=== PATIENT | female | born 1980 | race Caucasian/White ===

== ENCOUNTER 2016-11-16 11:12 | Emergency (ER) | payer BC ==
[2016-11-16 11:21] VITALS: BP 130/79
--- NOTE | 2016-11-16 11:47 | ERNOTE ---
Upper Extremity HPI - Narrative Date of Service: 11/16/16 - General Extremities Pain Location: collar-bone area: right, shoulder: right, arm: right , other: right - neck Time Seen by Provider: 11/16/16 11:14 Source: patient, RN notes reviewed Exam Limitations: no limitations - Immun/Allergies/Home Medications Immunizations: IMMUNIZATION HX Immunizations Up to Date Yes History of Influenza Vaccine No Hx Pneumococcal Vaccination No Allergies/Adverse Reactions: Allergies Allergy/AdvReac Type Severity Reaction Status Date / Time adhesive AdvReac Mild BANDAIDS Verified 11/16/16 11:21 CAUSE RASH Home Medications: HOME MEDICATIONS Ranitidine HCl [Zantac] 150 mg PO DAILY PRN 10/29/15 [Last Taken 04/05/16] Cyclobenzaprine HCl [Flexeril] 10 mg PO TID PRN 04/01/16 [Last Taken 04/01/16] oxyCODONE HCL/ACETAMINOPHEN [Oxycodone-Acetaminophen 5-325] 1 each PO Q6H PRN # 16 tablet 11/16/16 [Last Taken Unknown] - History of Present Illness Narrative: Kade is a 36-year-old female patient ambulatory to the emergency department for right-sided neck pain radiating into the shoulder and arm that was present on awakening this morning. She has limited mobility of her neck and shoulder. She has taken ibuprofen and Flexeril this morning without much improvement. She denies any injury. She reports having this happen to her once before. She has a history of degenerative disc disease and herniated disc in her lower back. Occurred: this morning Method of Injury: Reports: no apparent injury Modifying Factors - (Improves): Reports: immobilization, pain medication Modifying Factors - (Worsens): Reports: movement Associated Symptoms: Denies: tingling, weakness, numbness distally Prior Treament: Reports: similar symptoms before. Denies: recently seen Review of Systems - Review of Systems Constitutional: Absent: recent illness, fever, chills EYE: Present: no symptoms reported ENT: Present: no symptoms reported Respiratory: Absent: shortness of breath, cough Cardiology: Absent: chest pain, syncope Gastrointestinal/Abdominal: Present: no symptoms reported Genitourinary: Present: no symptoms reported Musculoskeletal: Present: back pain, muscle pain, muscle stiffness, neck pain. Absent: joint pain, joint swelling Skin: Absent: rash, lesions, lumps Neurological: Absent: headache, dizziness/light-headedness Endocrine: Present: no symptoms reported Hematologic/Lymphatic: Present: no symptoms reported Psych: Present: no symptoms reported - Patient's Past Medical History Patient History - Medical: Anxiety, Arthritis, Depression, GERD Patient History - Cardiac/Respiratory: No pertinent hx Patient History - Cancer: No Hx of Cancer Patient History - Surgical Procedures: , Hysterectomy, Total Knee Replacement, T & A, Other Patient History - Other: None - Social History Living Situations: home Abuse History: No History of abuse Psych History: Hx of Anxiety, Hx of Depression Smoking Status: Current every day smoker Have you smoked in the past 12 months: Yes Alcohol Use: none Drug Use: none - Immunizations Immunizations Up to Date: Yes Hx Pneumococcal Vaccination: No History of Influenza Vaccine: No Physical Exam - Physical Exam General Appearance: Present: wd/wn, alert, mild distress Head Exam: Present: normal inspection Neck: Present: supple, limited range of motion, tender lateral - Right. Absent : lymphadenopathy (R), lymphadenopathy (L), tender posterior midline Respiratory: Present: no respiratory distress, normal breath sounds, no accessory muscle use, lungs clear Cardiovascular/Chest: Present: regular rate, rhythm, no murmur Extremity Exam: Present: normal inspection, no edema, decreased range of motion - Right shoulder. Absent: bony tenderness, joint redness, joint swelling Neurological Exam: Present: alert, oriented, normal mood/affect, no motor/ sensory deficits Skin Exam: Present: normal color, warm/dry ED Progress - Vital Signs Patient's Vital Signs:: I have reviewed the patient's vital signs. Vital Signs: Vital Signs 11/16/16 11:18 Temperature 36.5 C Pulse Rate 79 Respiratory 16 Rate Blood Pressure 130/79 O2 Sat by Pulse 96 Oximetry - Progress/Reassessment Chief Complaint: Shoulder Injury/Pain Progress:: Unchanged Departure Clinical Impression: Acute torticollis Shoulder pain, right Qualifiers: Chronicity: acute Qualified Code(s): M25.511 - Pain in right shoulder - Departure Disposition: Home Follow Up Needed Condition: Stable Instructions: Acute Torticollis, Form - Excuse from Work, School, or Physical Activity Additional Instructions: Continue ibuprofen and Flexeril Consider chiropractic treatment or massage Follow up with your doctor if symptoms persist Referrals: Tae Shah DO [Primary Care Provider] - Prescriptions: oxyCODONE HCL/ACETAMINOPHEN [Oxycodone-Acetaminophen 5-325] 1 each PO Q6H PRN # 16 tablet PRN Reason: Pain
== END 2016-11-16 11:40 | disposition home or self-care (01) ==
LOC: ER 11:12
DX: M43.6 Torticollis (principal); M25.511 Pain in right shoulder; K21.9 Gastro-esophageal reflux disease without esophagitis; M19.90 Unspecified osteoarthritis, unspecified site; F17.200 Nicotine dependence, unspecified, uncomplicated